=== PATIENT | male | born 1930 | race Caucasian/White ===

== ENCOUNTER 2017-06-28 14:30 | Inpatient (IN) | payer OTHER ==
[~2017-06-28] VITALS: Ht 168.9 cm; Wt 99.3 kg
[2017-06-28 15:56] VITALS: BP 126/54
[2017-06-28 16:08] LABS: BASOPHILS % (AUTO) 0.4 % (0.0-5.0); EOSINOPHILS % (AUTO) 3.5 % (0.0-8.0); HEMATOCRIT 40.4 % (42-54); LYMPHOCYTES % (AUTO) 24.5 % (21.0-51.0); MEAN CORPUSCULAR VOLUME 91.1 fL (79-99); MONOCYTES % (AUTO) 9.9 % (3.0-13.0); NEUTROPHILS % (AUTO) 61.7 % (40.0-77.0); PLATELET COUNT (AUTO) 189 K/uL (130-400); RED BLOOD CELL COUNT(AUTO) 4.43 MIL/uL (4.50-6.20); RED CELL DISTRIBUTION WIDTH 14.7 % (11.0-15.5); WHITE BLOOD COUNT (AUTO) 7.4 K/uL (4.8-10.8)
[2017-06-28 16:14] LABS: APPEARANCE,URINE Clear (CLEAR); BILIRUBIN,URINE Negative (NEGATIVE); COLOR,URINE Yellow (YELLOW); GLUCOSE, URINE (UA) Negative (NEGATIVE); KETONES,URINE Negative (NEGATIVE); LEUKOCYTE ESTERASE ,URINE Small (NEGATIVE); NITRATE,URINE Negative (NEGATIVE); OCCULT BLOOD,URINE Negative (NEGATIVE); PROTEIN,URINE Negative (NEGATIVE); UROBILINOGEN,URINE 0.2 mg/dL (0.2-1.0)
[2017-06-28 16:26] LABS: BACTERIA,URINE Rare /HPF (None Seen); RBC,URINE None Seen /HPF (0-1); WBC,URINE 0-1 /HPF (0-1)
[2017-06-28 16:29] LABS: CREATININE 1.1 mg/dL (0.5-1.5); INR 0.94 (0.85-1.15); PARTIAL THROMBOPLASTIN TIME 26.5 SEC (26.3-35.5); POTASSIUM 4.6 mmol/L (3.5-5.1); PROTHROMBIN TIME 9.9 SEC (9.6-11.6)
[2017-06-28] MEDS ORDERED: LOSA25TA21 PO (17:14)
[2017-06-28] MEDS ORDERED: HYDR-2132 PO (17:14)
[2017-06-28] MEDS ORDERED: FINA5TAB41 PO (17:14)
[2017-06-28] MEDS ORDERED: BACL10TA PO (17:14)
[2017-06-28] MEDS ORDERED: LEVA1.2514 IH (17:14)
[2017-06-28] MEDS ORDERED: MONT10TA24 PO (17:14)
[2017-06-28] MEDS ORDERED: ASCO60LO10 PO (17:14)
[2017-06-28] MEDS ORDERED: VITAMIN B12 PO (17:14)
[2017-06-28] MEDS ORDERED: BEE POLLEN PO (17:14)
[2017-06-28] MEDS ORDERED: LEVALBUTEROL TARTRATE IH (17:14)
[2017-06-28] MEDS ORDERED: ASPI-1181 PO (17:14)
[2017-06-28] MEDS ORDERED: FLUTICASONE PROP NASAL (17:14)
[2017-06-28] MEDS ORDERED: GARL1TAB2 PO (17:14)
[2017-06-28] MEDS ORDERED: [UNRECOGNIZED DRUG - OTHER] PO (17:14)
[2017-06-28] MEDS ORDERED: PRED10TA3 PO (17:14)
[2017-06-28] MEDS ORDERED: TAMS0.4C32 PO (17:14)
[2017-06-28] MEDS ORDERED: GABA-529 PO (17:14)
[2017-06-28] MEDS ORDERED: [UNRECOGNIZED DRUG - OTHER] PO (17:14)
[2017-06-28] MEDS ORDERED: PRAV40TA3 PO (17:14)
[2017-06-28] MEDS ORDERED: LEVO50TA11 PO (17:14)
[2017-06-28] MEDS ORDERED: FOLIC ACID PO (17:14)
[2017-06-28] MEDS ORDERED: TRAM50TA4 PO (17:14)
[2017-06-28] MEDS ORDERED: ACET-2743 PO (17:14)
[2017-06-28] MEDS ORDERED: L.AC1CAP6 PO (17:14)
[2017-06-28] MEDS ORDERED: [UNRECOGNIZED DRUG - OTHER] PO (17:14)
[2017-06-28] MEDS ORDERED: FURO20TA6 PO (17:14)
[2017-06-28] MEDS ORDERED: [UNRECOGNIZED DRUG - OTHER] PO (17:14)
[2017-06-28] MEDS ORDERED: [UNRECOGNIZED DRUG - OTHER] PO (17:14)
[2017-06-28] MEDS ORDERED: [UNRECOGNIZED DRUG - OTHER] PO (17:14)
[2017-06-29] VITALS (13 sets, daily range): BP systolic 104–144; BP diastolic 44–76
[2017-06-29] MEDS ORDERED: WATER FOR INJECTION,STERILE 20 ML VIAL IJ ONE (08:00)
[2017-06-29] MEDS: CEFAZOLIN SODIUM 1 GM VIAL IVP ONE ×2 (08:00→17:35)
[2017-06-29] MEDS ORDERED: CEFAZOLIN SODIUM 1 GM VIAL ONE ×4 (14:02→21:08)
[2017-06-29] MEDS ORDERED: LACTATED RINGERS 1000ML 1,000 ML IV ONE (14:02)
[2017-06-29] MEDS ORDERED: KETOROLAC TROMETHAMINE 15MG/ML ONE (15:02)
[2017-06-29] MEDS ORDERED: ACETAMINOPHEN EXTRA STRENGTH 500 MG TABLET ONE (15:02)
[2017-06-29] MEDS ORDERED: OXYCODONE HCL 10 MG TAB.SR.12H PO ONE (15:03)
[2017-06-29] MEDS ORDERED: TRANEXAMIC ACID 1000MG/10ML IV ONE (16:14)
[2017-06-29] MEDS ORDERED: PROPOFOL 10 MG/ML 20ML VIAL IV ONE (17:05)
[2017-06-29] MEDS ORDERED: MIDAZOLAM HCL 1 MG/ML 2ML VIAL ONE (17:05)
[2017-06-29] MEDS ORDERED: FENTANYL CITRATE PF 50 MCG/1 ML 5ML AMP IV ONE (17:05)
[2017-06-29] MEDS ORDERED: ROPIVACAINE 0.5% 5MG/ML 30ML IJ ONE (17:08)
[2017-06-29] MEDS ORDERED: BUPIVACAINE/EPI/PF 0.25% 30ML VIAL IJ ONE (18:08)
[2017-06-29] MEDS ORDERED: DEXAMETHASONE SOD PHOSPHATE 10MG/ML 1ML VIAL ONE (20:40)
[2017-06-29] MEDS ORDERED: GLYCOPYRROLATE 0.2 MG/ML 5 ML VIAL ONE (21:13)
[2017-06-29] MEDS ORDERED: LIDOCAINE HCL-MPF 1% 5ML AMP IJ ONE (21:13)
[2017-06-29] MEDS ORDERED: NEOSTIGMINE 5MG/5ML SYR IV ONE (21:13)
[2017-06-29] MEDS ORDERED: DiphenhydrAMINE HCL 50 MG/ML VIAL IVP PRN (21:30)
[2017-06-29] MEDS ORDERED: DIPHENHYDRAMINE HCL 25 MG CAPSULE PO PRN (21:30)
[2017-06-29] MEDS ORDERED: POTASSIUM CHLORIDE 20MEQ/100ML 100 ML IV PRN (21:30)
[2017-06-29] MEDS ORDERED: CALCIUM CARBONATE 500 MG TABLET PO PRN (21:30)
[2017-06-29] MEDS ORDERED: TEMAZEPAM 15 MG CAPSULE PO PRN (21:30)
[2017-06-29] MEDS ORDERED: FERROUS FUMARATE 324 MG TABLET PO PRN (21:30)
[2017-06-29] MEDS ORDERED: LIDOCAINE HCL-MPF 1% 2ML VIAL IVP PRN (21:30)
[2017-06-29] MEDS: ACETAMINOPHEN 325 MG TAB PO SCH (21:30)
[2017-06-29] MEDS ORDERED: PROMETHAZINE HCL 25 MG/ML 1ML AMPULE IM PRN (21:30)
[2017-06-29] MEDS ORDERED: POTASSIUM CHLORIDE 20 MEQ ERTAB PO PRN (21:30)
[2017-06-29] MEDS ORDERED: POTASSIUM CHLORIDE 10% ELIXIR 20 MEQ/15 ML UDCUP PO PRN (21:30)
[2017-06-29] MEDS ORDERED: TRAMADOL HCL 50 MG TABLET PO PRN (21:30)
[2017-06-29] MEDS ORDERED: MEPERIDINE-PF 50 MG/ML SYG ONE (22:21)
[2017-06-29] MEDS ORDERED: BACLOFEN 10 MG TABLET PO PRN (23:15)
[2017-06-29] MEDS ORDERED: FOLI0.4T2 PO (23:16)
[2017-06-29] MEDS ORDERED: LEVA15HF3 IH (23:23)
[2017-06-29] MEDS ORDERED: FLUT16H NASAL (23:31)
[2017-06-29] MEDS ORDERED: FLUTICASONE PROPIONATE 50MCG/SPRAY 16 GM BOTTLE EN PRN (23:45)
[2017-06-29] MEDS: SODIUM CHLORIDE 0.9% 1000ML 1,000 ML IV SCH (23:48)
[2017-06-30] VITALS (9 sets, daily range): BP systolic 106–127; BP diastolic 54–80
[2017-06-30] MEDS: OXYCODONE HCL 5 MG TAB PO PRN ×4 (00:53→21:10)
[2017-06-30] MEDS ORDERED: CEFAZOLIN 2GM / 50 ML 50 ML IV SCH (02:30)
[2017-06-30] MEDS: CEFAZOLIN SODIUM 1 GM VIAL IVP SCH ×2 (03:43→09:45)
[2017-06-30] MEDS: ACETAMINOPHEN 325 MG TAB PO SCH ×4 (03:47→21:11)
[2017-06-30 05:23] LABS: HEMATOCRIT 38.1 % (42-54); MEAN CORPUSCULAR HEMOGLOBIN 30.8 pg (27.0-33.0); MEAN CORPUSCULAR HGB CONC 33.7 g/dL (32.0-36.0); MEAN CORPUSCULAR VOLUME 91.2 fL (79-99); NUCLEATED RED BLOOD CELLS 0.1 % (0.0-0.19); PLATELET COUNT (AUTO) 168 K/uL (130-400); RED BLOOD CELL COUNT(AUTO) 4.17 MIL/uL (4.50-6.20); RED CELL DISTRIBUTION WIDTH 14.5 % (11.0-15.5)
[2017-06-30 05:51] LABS: CREATININE 1.2 mg/dL (0.5-1.5); POTASSIUM 4.8 mmol/L (3.5-5.1)
[2017-06-30] MEDS: FAMOTIDINE 20MG TAB 20 MG TAB PO SCH ×2 (07:48→21:10)
[2017-06-30] MEDS: POLYETHYLENE GLYCOL 3350 17 GM POWD.PACK PO SCH (07:48)
[2017-06-30] MEDS: LOSARTAN 50 MG TABLET PO SCH (07:48)
[2017-06-30] MEDS: TAMSULOSIN HCL 0.4 MG CAP.ER.24H PO SCH (07:48)
[2017-06-30] MEDS: LEVOTHYROXINE 50 MCG TABLET PO SCH (07:49)
[2017-06-30] MEDS: FUROSEMIDE 20 MG TABLET PO SCH (07:50)
[2017-06-30] MEDS: FOLIC ACID 0.4 MG PO SCH (09:00)
[2017-06-30] MEDS: ASPIRIN 325 MG TABLET PO SCH ×2 (11:21→21:09)
[2017-06-30] MEDS: PSYLLIUM SEED 1 EACH PACKET PO SCH (11:21)
[2017-06-30] MEDS: SODIUM CHLORIDE 0.9% 1000ML 1,000 ML IV SCH (17:28)
[2017-06-30] MEDS ORDERED: MONTELUKAST SODIUM 10 MG TAB PO SCH (21:00)
[2017-06-30] MEDS ORDERED: FINASTERIDE 5 MG TABLET PO SCH (21:00)
[2017-06-30] MEDS ORDERED: ATORVASTATIN CALCIUM 20 MG TABLET PO SCH (21:00)
[2017-06-30] MEDS ORDERED: GABAPENTIN 100 MG CAPSULE PO SCH (21:00)
[2017-06-30] MEDS: KETOROLAC TROMETHAMINE 15MG/ML IV PRN (23:14)
[2017-07-01] MEDS: ACETAMINOPHEN 325 MG TAB PO SCH ×3 (04:23→16:26)
[2017-07-01 05:03] VITALS: BP 130/59
[2017-07-01 05:04] LABS: HEMATOCRIT 33.3 % (42-54); MEAN CORPUSCULAR HEMOGLOBIN 32.1 pg (27.0-33.0); MEAN CORPUSCULAR HGB CONC 35.2 g/dL (32.0-36.0); MEAN CORPUSCULAR VOLUME 91.2 fL (79-99); PLATELET COUNT (AUTO) 179 K/uL (130-400); RED BLOOD CELL COUNT(AUTO) 3.66 MIL/uL (4.50-6.20); RED CELL DISTRIBUTION WIDTH 14.7 % (11.0-15.5); WHITE BLOOD COUNT (AUTO) 11.1 K/uL (4.8-10.8)
[2017-07-01 05:12] LABS: CREATININE 1.3 mg/dL (0.5-1.5); POTASSIUM 4.2 mmol/L (3.5-5.1)
[2017-07-01 07:30] VITALS: BP 145/72
[2017-07-01] MEDS: ASPIRIN 325 MG TABLET PO SCH (08:07)
[2017-07-01] MEDS: LOSARTAN 50 MG TABLET PO SCH (08:08)
[2017-07-01] MEDS: TAMSULOSIN HCL 0.4 MG CAP.ER.24H PO SCH (08:08)
[2017-07-01] MEDS: FAMOTIDINE 20MG TAB 20 MG TAB PO SCH (08:09)
[2017-07-01] MEDS: LEVOTHYROXINE 50 MCG TABLET PO SCH (08:09)
[2017-07-01] MEDS: POLYETHYLENE GLYCOL 3350 17 GM POWD.PACK PO SCH (08:09)
[2017-07-01] MEDS: FUROSEMIDE 20 MG TABLET PO SCH (08:10)
[2017-07-01] MEDS: KETOROLAC TROMETHAMINE 15MG/ML IV PRN (08:11)
[2017-07-01] MEDS: FOLIC ACID 0.4 MG PO SCH (09:00)
[2017-07-01 11:00] VITALS: BP 149/69
[2017-07-01] MEDS: PSYLLIUM SEED 1 EACH PACKET PO SCH (11:47)
[2017-07-01] MEDS: OXYCODONE HCL 5 MG TAB PO PRN (12:32)
[2017-07-01] MEDS: LEVALBUTEROL 1.25 MG/3 ML IH PRN ×2 (12:46→18:22)
[2017-07-01 16:00] VITALS: BP 150/70
[2017-07-01] MEDS ORDERED: BISACODYL 5 MG TABLET.DR PO ONE (18:37)
[2017-07-01] MEDS ORDERED: HYDR-309 PO (19:34)
[2017-07-01] MEDS ORDERED: ASPI-1012 PO (19:34)
[2017-07-01] MEDS ORDERED: BISACODYL 5 MG TABLET.DR PO PRN (21:30)
[2017-07-02] MEDS ORDERED: BISACODYL 10 MG SUPP.RECT RC PRN (21:30)
== END 2017-07-01 20:15 | disposition home health service (06) | DRG 468 ==
LOC: EDSTATUS 14:30 → DAHIP 06-29 13:10 → 4AH 06-29 22:37
PROVIDERS: ADMIT Orthopaedic Surgery; ATTEND Orthopaedic Surgery
PROC: 0SPD0JZ Removal of Synthetic Substitute from Left Knee Joint, Open Approach (ICD-10-PCS; principal; 2017-06-29 18:04)
PROC: 0SRD0J9 Replacement of Left Knee Joint with Synthetic Substitute, Cemented, Open Approach (ICD-10-PCS; 2017-06-29 18:04)
DX: T84.033A Mechanical loosening of internal left knee prosthetic joint, initial encounter (principal); J44.9 Chronic obstructive pulmonary disease, unspecified; Z95.1 Presence of aortocoronary bypass graft; I10 Essential (primary) hypertension; E78.5 Hyperlipidemia, unspecified; E03.9 Hypothyroidism, unspecified; I25.10 Atherosclerotic heart disease of native coronary artery without angina pectoris; Y79.2 Prosthetic and other implants, materials and accessory orthopedic devices associated with adverse incidents; M19.90 Unspecified osteoarthritis, unspecified site; Y92.89 Other specified places as the place of occurrence of the external cause; Z95.0 Presence of cardiac pacemaker; Z88.1 Allergy status to other antibiotic agents; Z88.7 Allergy status to serum and vaccine; Z88.8 Allergy status to other drugs, medicaments and biological substances; Z82.49 Family history of ischemic heart disease and other diseases of the circulatory system; Z80.9 Family history of malignant neoplasm, unspecified; Z28.21 Immunization not carried out because of patient refusal
CPT/HCPCS: 36415; 76000; 80048; 81001; 85025; 85027; 85610; 85730; 87070; 87076; 87205; 88300; 88305; 88311; 93005; 94640; 94664; 96374; A4218; C1713; C1776; J0690; J1100; J1885; J2175; J2250; J2704; J2710; J2795; J3010; J3490; J7030; J7120